=== PATIENT | female | born 1955 | race Caucasian/White ===

== ENCOUNTER → 2018-07-28 | Outpatient (CLI) | payer OTHER | END | disposition home or self-care (01) | LOC: EKG 10:49 | DX: C50.919 Malignant neoplasm of unspecified site of unspecified female breast (principal) | CPT/HCPCS: 93306 ==

== ENCOUNTER 2018-10-26 08:01 | Day surgery (SDC) | payer OTHER ==
[2018-10-26] MEDS ORDERED: PROPOFOL 40 ML (09:38)
[2018-10-26] MEDS ORDERED: LIDOCAINE 2% (SDV) 5 ML INJ (09:38)
[2018-10-26] MEDS ORDERED: HYDROmorphONE 1 MG/5 ML IV SYRINGE IV (10:00)
[2018-10-26] MEDS ORDERED: ONDANSETRON 4 MG INJ IV (10:00)
[2018-10-26] MEDS ORDERED: PROPOFOL 20 ML (11:09)
== END 2018-10-26 15:15 | disposition home or self-care (01) ==
LOC: GIL 08:01
DX: R19.4 Change in bowel habit (principal); K64.8 Other hemorrhoids; K44.9 Diaphragmatic hernia without obstruction or gangrene; K21.9 Gastro-esophageal reflux disease without esophagitis; Z90.3 Acquired absence of stomach [part of]; I10 Essential (primary) hypertension
CPT/HCPCS: 43239; 88305; 88312; 88342

== ENCOUNTER 2019-04-19 09:20 | Day surgery (SDC) | payer OTHER ==
[2019-04-19] MEDS ORDERED: PROPOFOL 20 ML ×2 (10:50→11:19)
== END 2019-04-19 14:25 | disposition home or self-care (01) ==
LOC: GIL 09:20
DX: Z12.11 Encounter for screening for malignant neoplasm of colon (principal); K64.8 Other hemorrhoids; I10 Essential (primary) hypertension
CPT/HCPCS: 45378